=== PATIENT | male | born 1995 | race Native Hawaiian/Other Pacific Islander ===

== ENCOUNTER 2021-06-14 18:12 | Emergency (ER) | payer OTHER ==
[~2021-06-14] VITALS: Ht 170.2 cm; Wt 81.8 kg
[2021-06-14 19:47] VITALS: BP 147/87; TEMP 97.7
== END 2021-06-14 19:47 | disposition home or self-care (01) ==
LOC: ED 18:12
DX: T85.398A Other mechanical complication of other ocular prosthetic devices, implants and grafts, initial encounter (principal); Y82.8 Other medical devices associated with adverse incidents; Y92.89 Other specified places as the place of occurrence of the external cause
CPT/HCPCS: 99283